=== PATIENT | female | born 1970 | race Caucasian/White ===

== ENCOUNTER 2022-09-29 11:49 | Inpatient (IN) ==
[2022-09-29] MEDS ORDERED: SODIUM CHLORIDE 0.9% 1,000 ML IV STA ×2 (12:12→13:32)
[2022-09-29] MEDS ORDERED: ONDANSETRON 4 MG/2 ML VIAL IV ONE (12:15)
[2022-09-29] MEDS ORDERED: MORPHINE 2 MG/1 ML SYRINGE IV ONE (12:15)
[2022-09-29 13:09] LABS: Basophils # 0.1 10*3/uL (0.0-0.2); Basophils % 0.5 % (0.0-0.8); Eosinophils # 0.1 10*3/uL (0.0-0.87); Eosinophils % 0.8 % (0.00-10.9); Hematocrit 41.1 VOL% (35.7-47.0); Hemoglobin 13.6 GM/DL (12.0-16.0); Immature Granulocytes % 0.4 %; Immature Granulocytes Absolute 0.05 #; Lymphocytes # 1.3 10*3/uL (1.4-4.0); Lymphocytes % 10.9 % (21.3-54.2); Mean Corpuscular HGB Conc 33.1 GM/DL (32-36); Mean Corpuscular Volume 90.5 FL (87-102); Mean Platelet Volume 9.4 FL (9.6-12.0); Monocytes % 8.8 % (1.7-12.7); Neutrophils % 78.6 % (38.7-73.9); Platelet Count 242 T/CUMM (130-400); Red Blood Count 4.54 MC/CUMM (3.8-5.5); Red Cell Distribution Width 12.4 % (9.3-17.3); White Blood Count 11.7 T/CUMM (4-12)
[2022-09-29 13:12] LABS: RBC,Urine 32 /HPF (0-4)
[2022-09-29 13:13] LABS: Bilirubin,Urine Negative (Negative); Blood, Urine Large mg/dL (Negative); Glucose,Urine (UA) 100 mg/dL (Negative); Ketones,Urine 15 mg/dL (Negative); Nitrite,Urine Positive (Negative); Protein,Urine 30 mg/dL (Negative); Urine Appearance Clear (Clear); Urine Color Yellow (Yellow); Urine Specific Gravity 1.015 (1.001-1.035); Urine pH 6.5 (4.5-8.0)
[2022-09-29 13:18] LABS: INR 1.6; PT Patient Result 16.9 SECS (10.1-12.1)
[2022-09-29 13:27] LABS: Albumin 3.2 G/DL (3.4-5.0); Bilirubin,Total 0.4 MG/DL (0.20-1.00); Calcium 11.5 MG/DL (8.5-10.1); Osmolality,Calculated 270.8 MOS/KG (273-304); Potassium 3.8 MMOL/L (3.5-5.1); Total Protein 7.6 G/DL (6.4-8.2)
[2022-09-29] MEDS ORDERED: HYDROmorphone 1 MG/1 ML SYRINGE IV STA (14:26)
[2022-09-29] MEDS ORDERED: NICOTINE 21 MG/24 HR PATCH TRANSDERM PRN (15:33)
[2022-09-29] MEDS ORDERED: ONDANSETRON 4 MG/2 ML VIAL IV PRN (15:33)
[2022-09-29] MEDS ORDERED: FUROSEMIDE 40 MG/4 ML VIAL IV STA (16:13)
[2022-09-29] MEDS: HYDROmorphone 1 MG/1 ML SYRINGE IV PRN ×2 (16:16→20:09)
[2022-09-29] MEDS: SODIUM CHLORIDE 0.9% 1,000 ML IV SCH (16:18)
[2022-09-29] MEDS ORDERED: PHYTONADIONE 5 MG/5 ML ORAL.SYR PO ONE (19:30)
[2022-09-30] MEDS: HYDROmorphone 1 MG/1 ML SYRINGE IV PRN ×8 (00:07→20:30)
[2022-09-30] MEDS: SODIUM CHLORIDE 0.9% 1,000 ML IV SCH ×3 (00:45→19:14)
[2022-09-30] MEDS ORDERED: cefTRIAXone 1,000 MG in SODIUM CHLORIDE 0.9% 100 ML IV ONE (06:00)
[2022-09-30 06:01] LABS: INR 1.5; PT Patient Result 16.5 SECS (10.1-12.1)
[2022-09-30 06:13] LABS: Calcium 10.4 MG/DL (8.5-10.1); Osmolality,Calculated 274.5 MOS/KG (273-304); Potassium 3.8 MMOL/L (3.5-5.1)
[2022-09-30 06:38] LABS: Basophils # 0.1 10*3/uL (0.0-0.2); Basophils % 0.8 % (0.0-0.8); Eosinophils # 0.1 10*3/uL (0.0-0.87); Eosinophils % 1.4 % (0.00-10.9); Hematocrit 37.6 VOL% (35.7-47.0); Immature Granulocytes % 0.4 %; Immature Granulocytes Absolute 0.04 #; Lymphocytes # 1.5 10*3/uL (1.4-4.0); Lymphocytes % 14.7 % (21.3-54.2); Mean Corpuscular HGB Conc 31.9 GM/DL (32-36); Mean Corpuscular Volume 92.6 FL (87-102); Mean Platelet Volume 9.8 FL (9.6-12.0); Monocytes % 9.8 % (1.7-12.7); Neutrophils % 72.9 % (38.7-73.9); Red Blood Count 4.06 MC/CUMM (3.8-5.5); Red Cell Distribution Width 12.3 % (9.3-17.3); White Blood Count 10.4 T/CUMM (4-12)
[2022-09-30 06:43] LABS: Platelet Count 226 T/CUMM (130-400)
[2022-09-30] MEDS ORDERED: MAGNESIUM SULF RIDER 4 GM/100 ML PREMIX IV PRN (07:20)
[2022-09-30] MEDS ORDERED: MAGNESIUM SULF RIDER 2 GM/50 ML PREMIX IV PRN (07:20)
[2022-09-30 07:40] LABS: INR 1.5; PT Patient Result 15.8 SECS (10.1-12.1); Partial Thromboplastin Time 26.6 SECS (23.7-32.9)
[2022-09-30] MEDS ORDERED: DEXAMETHASONE 4 MG/1 ML VIAL ONE (07:44)
[2022-09-30] MEDS ORDERED: LIDOCAINE 1% 5 ML VIAL ONE (07:44)
[2022-09-30] MEDS ORDERED: ROPIVACAINE 0.5% 30 ML VIAL ONE (07:44)
[2022-09-30] MEDS ORDERED: MIDAZOLAM 2 MG/2 ML VIAL ONE ×2 (08:01→08:28)
[2022-09-30] MEDS ORDERED: FAMOTIDINE 20 MG/2 ML VIAL IV ONE (08:53)
[2022-09-30] MEDS ORDERED: SCOPOLAMINE 1.5 MG PATCH TRANSDERM ONE (08:53)
[2022-09-30] MEDS ORDERED: fentaNYL 100 MCG/2 ML VIAL ONE (09:54)
[2022-09-30] MEDS ORDERED: LIDOCAINE 2% 5 ML VIAL ONE (10:00)
[2022-09-30] MEDS ORDERED: propofoL 200 MG/20 ML VIAL IV ONE (10:00)
[2022-09-30] MEDS ORDERED: DESFLURANE 1 UNIT/15 MINUTE INH ONE (10:00)
[2022-09-30] MEDS ORDERED: ROCURONIUM 50 MG/5 ML VIAL IV ONE (10:00)
[2022-09-30] MEDS ORDERED: fentaNYL 250 MCG/5 ML VIAL ONE (10:02)
[2022-09-30] MEDS ORDERED: LACTATED RINGERS 1,000 ML IV ONE (10:05)
[2022-09-30] MEDS ORDERED: GLYCOPYRROLATE 0.4 MG/2 ML VIAL ONE (12:17)
[2022-09-30] MEDS ORDERED: NEOSTIGMINE 10 MG/10 ML VIAL ONE (12:17)
[2022-09-30] MEDS ORDERED: ONDANSETRON 4 MG/2 ML VIAL ONE (12:17)
[2022-09-30] MEDS ORDERED: ACETAMINOPHEN INJ 1,000 MG/100 ML VIAL IV ONE (12:18)
[2022-09-30] MEDS: amLODIPine 5 MG TABLET PO SCH (12:58)
[2022-09-30] MEDS: PANTOPRAZOLE 40 MG TABLET PO SCH (12:58)
[2022-09-30 12:59] LABS: Mucus,Urine Occasional /LPF (Occasional); RBC,Urine 124 /HPF (0-4)
[2022-09-30 13:01] LABS: Bilirubin,Urine Negative (Negative); Blood, Urine Large mg/dL (Negative); Glucose,Urine (UA) Negative (Negative); Ketones,Urine Negative (Negative); Nitrite,Urine Positive (Negative); Protein,Urine Negative (Negative); Urine Appearance Clear (Clear); Urine Color Yellow (Yellow); Urine Specific Gravity 1.015 (1.001-1.035); Urine Urobilinogen 0.2 eU/dL (<2.0); Urine pH 6.5 (4.5-8.0)
[2022-09-30] MEDS ORDERED: ONDANSETRON 4 MG/2 ML VIAL IV PRN (13:02)
[2022-09-30] MEDS ORDERED: MEPERIDINE 25 MG/1 ML VIAL ONE (13:11)
[2022-09-30 13:12] LABS: Basophils # 0.1 10*3/uL (0.0-0.2); Basophils % 0.5 % (0.0-0.8); Eosinophils % 0.2 % (0.00-10.9); Hematocrit 36.2 VOL% (35.7-47.0); Hemoglobin 11.7 GM/DL (12.0-16.0); Immature Granulocytes % 0.8 %; Immature Granulocytes Absolute 0.08 #; Lymphocytes # 0.8 10*3/uL (1.4-4.0); Lymphocytes % 7.5 % (21.3-54.2); Mean Corpuscular HGB Conc 32.3 GM/DL (32-36); Mean Corpuscular Volume 92.6 FL (87-102); Mean Platelet Volume 9.7 FL (9.6-12.0); Monocytes # 0.3 10*3/uL (0.11-0.8); Monocytes % 2.6 % (1.7-12.7); Neutrophils % 88.4 % (38.7-73.9); Platelet Count 197 T/CUMM (130-400); Red Blood Count 3.91 MC/CUMM (3.8-5.5); Red Cell Distribution Width 12.3 % (9.3-17.3); White Blood Count 10.6 T/CUMM (4-12)
[2022-09-30] MEDS ORDERED: MEPERIDINE 25 MG/1 ML VIAL IV PRN (13:14)
[2022-09-30 13:29] LABS: Calcium 10.3 MG/DL (8.5-10.1); Osmolality,Calculated 276.8 MOS/KG (273-304); Potassium 3.8 MMOL/L (3.5-5.1)
[2022-09-30] MEDS: ALVIMOPAN 12 MG CAPSULE PO SCH ×2 (18:06→20:27)
[2022-09-30] MEDS: oxyCODONE/ACETAMINOPHEN 5-325 MG TABLET PO PRN (19:25)
[2022-10-01] MEDS: oxyCODONE/ACETAMINOPHEN 5-325 MG TABLET PO PRN ×5 (01:00→23:07)
[2022-10-01] MEDS: HYDROmorphone 1 MG/1 ML SYRINGE IV PRN ×7 (02:09→21:52)
[2022-10-01] MEDS: SODIUM CHLORIDE 0.9% 1,000 ML IV SCH ×3 (02:49→22:00)
[2022-10-01 05:05] LABS: Basophils % 0.3 % (0.0-0.8); Eosinophils % 0.3 % (0.00-10.9); Hematocrit 32.3 VOL% (35.7-47.0); Hemoglobin 10.6 GM/DL (12.0-16.0); Immature Granulocytes % 0.4 %; Immature Granulocytes Absolute 0.04 #; Lymphocytes # 1.6 10*3/uL (1.4-4.0); Lymphocytes % 17.1 % (21.3-54.2); Mean Corpuscular HGB Conc 32.8 GM/DL (32-36); Mean Corpuscular Volume 91.2 FL (87-102); Mean Platelet Volume 9.9 FL (9.6-12.0); Monocytes % 10.4 % (1.7-12.7); Neutrophils % 71.5 % (38.7-73.9); Platelet Count 199 T/CUMM (130-400); Red Blood Count 3.54 MC/CUMM (3.8-5.5); Red Cell Distribution Width 12.2 % (9.3-17.3); White Blood Count 9.6 T/CUMM (4-12)
[2022-10-01 05:40] LABS: Calcium 9.6 MG/DL (8.5-10.1); Osmolality,Calculated 278.3 MOS/KG (273-304); Potassium 3.4 MMOL/L (3.5-5.1)
[2022-10-01] MEDS: PANTOPRAZOLE 40 MG TABLET PO SCH (09:14)
[2022-10-01] MEDS: ALVIMOPAN 12 MG CAPSULE PO SCH ×2 (09:14→20:00)
[2022-10-01] MEDS: amLODIPine 5 MG TABLET PO SCH (09:15)
[2022-10-01] MEDS: cefTRIAXone 1,000 MG in SODIUM CHLORIDE 0.9% 100 ML IV SCH (09:16)
[2022-10-01] MEDS ORDERED: POTASSIUM CHLORIDE 20 MEQ TABLET PO ONE (10:52)
[2022-10-02 05:05] LABS: Basophils # 0.1 10*3/uL (0.0-0.2); Basophils % 0.6 % (0.0-0.8); Eosinophils # 0.2 10*3/uL (0.0-0.87); Eosinophils % 2.9 % (0.00-10.9); Hematocrit 33.5 VOL% (35.7-47.0); Hemoglobin 10.6 GM/DL (12.0-16.0); Immature Granulocytes % 0.5 %; Immature Granulocytes Absolute 0.04 #; Lymphocytes # 1.1 10*3/uL (1.4-4.0); Mean Corpuscular HGB Conc 31.6 GM/DL (32-36); Mean Corpuscular Volume 93.1 FL (87-102); Mean Platelet Volume 9.5 FL (9.6-12.0); Monocytes # 0.8 10*3/uL (0.11-0.8); Monocytes % 9.3 % (1.7-12.7); Neutrophils % 73.7 % (38.7-73.9); Platelet Count 193 T/CUMM (130-400); Red Cell Distribution Width 12.3 % (9.3-17.3); White Blood Count 8.21 T/CUMM (4-12)
[2022-10-02 05:35] LABS: Calcium 9.7 MG/DL (8.5-10.1); Osmolality,Calculated 276.3 MOS/KG (273-304); Potassium 3.6 MMOL/L (3.5-5.1)
[2022-10-02] MEDS: SODIUM CHLORIDE 0.9% 1,000 ML IV SCH ×3 (06:07→18:16)
[2022-10-02] MEDS: HYDROmorphone 1 MG/1 ML SYRINGE IV PRN ×2 (06:09→18:22)
[2022-10-02] MEDS: oxyCODONE/ACETAMINOPHEN 5-325 MG TABLET PO PRN ×3 (07:19→20:20)
[2022-10-02] MEDS: ALVIMOPAN 12 MG CAPSULE PO SCH ×2 (09:27→20:18)
[2022-10-02] MEDS: PANTOPRAZOLE 40 MG TABLET PO SCH (09:28)
[2022-10-02] MEDS: amLODIPine 5 MG TABLET PO SCH (09:28)
[2022-10-02] MEDS: cefTRIAXone 1,000 MG in SODIUM CHLORIDE 0.9% 100 ML IV SCH (09:29)
[2022-10-03] MEDS: HYDROmorphone 1 MG/1 ML SYRINGE IV PRN ×2 (01:51→07:40)
[2022-10-03] MEDS: oxyCODONE/ACETAMINOPHEN 5-325 MG TABLET PO PRN ×2 (03:28→09:11)
[2022-10-03 06:11] LABS: Basophils # 0.1 10*3/uL (0.0-0.2); Eosinophils # 0.3 10*3/uL (0.0-0.87); Eosinophils % 3.9 % (0.00-10.9); Hematocrit 33.1 VOL% (35.7-47.0); Hemoglobin 10.7 GM/DL (12.0-16.0); Immature Granulocytes % 0.4 %; Immature Granulocytes Absolute 0.03 #; Lymphocytes # 1.3 10*3/uL (1.4-4.0); Lymphocytes % 17.6 % (21.3-54.2); Mean Corpuscular HGB Conc 32.3 GM/DL (32-36); Mean Corpuscular Volume 91.4 FL (87-102); Mean Platelet Volume 9.5 FL (9.6-12.0); Monocytes # 0.7 10*3/uL (0.11-0.8); Monocytes % 9.9 % (1.7-12.7); Neutrophils % 67.2 % (38.7-73.9); Platelet Count 226 T/CUMM (130-400); Red Blood Count 3.62 MC/CUMM (3.8-5.5); Red Cell Distribution Width 12.4 % (9.3-17.3); White Blood Count 7.15 T/CUMM (4-12)
[2022-10-03 06:40] LABS: Calcium 9.4 MG/DL (8.5-10.1); Potassium 3.9 MMOL/L (3.5-5.1)
[2022-10-03 07:51] VITALS: BP 136/84
[2022-10-03] MEDS: cefTRIAXone 1,000 MG in SODIUM CHLORIDE 0.9% 100 ML IV SCH (08:50)
[2022-10-03] MEDS: PANTOPRAZOLE 40 MG TABLET PO SCH (08:50)
[2022-10-03] MEDS: ALVIMOPAN 12 MG CAPSULE PO SCH (08:51)
[2022-10-03] MEDS: amLODIPine 5 MG TABLET PO SCH (08:51)
== END 2022-10-03 11:09 | disposition home health service (06) | DRG 657 ==
LOC: N.ED 11:49 → SUATTDRO 15:16 → N.EDINP 15:16 → N.3E 16:59
PROVIDERS: ADMIT Emergency Medicine; ATTEND Internal Medicine